=== PATIENT | male | born 1995 | race Caucasian/White ===

== ENCOUNTER 2023-04-03 10:24 | Emergency (ER) | payer MEDICARE, MEDICAID ==
[~2023-04-03] VITALS: Ht 185.4 cm; Wt 82.8 kg
[~2023-04-03 10:24] MED LIST: DIVA-81 PO; PENI500T2 PO; VALP250C44 PO
[2023-04-03 10:25] VITALS: BP 128/78; PULSE 77; RESP 16; TEMP 98; O2SAT 100
== END 2023-04-03 11:26 | disposition home or self-care (01) ==
LOC: ER 10:25
DX: S06.0X0A Concussion without loss of consciousness, initial encounter (principal); W19.XXXA Unspecified fall, initial encounter; Y93.89 Activity, other specified; Y92.89 Other specified places as the place of occurrence of the external cause; Y99.8 Other external cause status
CPT/HCPCS: 99284

== ENCOUNTER 2024-10-05 15:29 | Emergency (ER) | payer MEDICARE, MEDICAID ==
[~2024-10-05] VITALS: Ht 182.9 cm; Wt 93.0 kg
[2024-10-05 15:38] VITALS: TEMP 98
--- NOTE | 2024-10-05 15:46 | ELECTROCARDIOGRAPH REPORT ---
[facility] Test Date: 2024-10-05 Test Time: 15:39:33 Pat Name: KWASI LONG Department: EMERGENCY ROOM Room: Gender: M Channel Man: DT : 1995 Requested By: ENDER PERALTA Order Number: [id number] Reading MD: Measurements Intervals [place] Rate: 68 P: 41 MD: 135 QRS: 34 QRSD: 92 T: 35 QT: 364 QTc: 388 Interpretive Statements Sinus rhythm ST elev, probable normal early repol pattern Please click the below link to view image of tracing.
--- NOTE | 2024-10-05 16:07 | RADIOLOGY REPORT ---
EXAM: XR Chest, 1 View CLINICAL INDICATION: CP TECHNIQUE: Frontal view of the chest. COMPARISON: None FINDINGS: LUNGS AND PLEURAL SPACES: Unremarkable. No consolidation. No pneumothorax. HEART: Unremarkable. No cardiomegaly. MEDIASTINUM: Unremarkable. Normal mediastinal contour. BONES/JOINTS: Unremarkable. No acute fracture. OTHER FINDINGS: . IMPRESSION: No acute cardiopulmonary process.
[2024-10-05 16:38] LABS: BASOPHILS % (AUTO) 0.5 % (0-1); EOSINOPHILS % (AUTO) 0.7 % (0-6); HEMATOCRIT 37.7 % (42.0-52.0); HEMOGLOBIN 13.1 g/dl (14.0-17.9); LYMPHOCYTES # (AUTO) 2.3 X10'3 (1.1-4.8); LYMPHOCYTES % (AUTO) 44.9 % (21-51); MEAN CORPUSCULAR HEMOGLOBIN 34.7 PG (27.0-31.0); MEAN CORPUSCULAR HGB CONC 34.9 g/dL (33.0-36.5); MEAN CORPUSCULAR VOLUME 99.3 FL (78-98); MEAN PLATELET VOLUME 7.5 FL (7.4-10.4); MONOCYTES # (AUTO) 0.8 X10'3 (0-0.9); NEUTROPHILS # (AUTO) 1.9 X10'3 (1.8-7.7); NEUTROPHILS % (AUTO) 37.9 % (42-75); PLATELET COUNT 178 X10'3 (140-440); RED BLOOD COUNT 3.79 X10'6 (4.70-6.10); RED CELL DISTRIBUTION WIDTH 12.6 % (11.5-14.5); WHITE BLOOD COUNT 5.1 X10'3 (4.5-11.0)
[2024-10-05 16:53] LABS: ALANINE AMINOTRANSFERASE 18 U/L (12-78); ALBUMIN 3.1 G/DL (3.4-5.0); ALKALINE PHOSPHATASE 75 IU/L (46-116); ANION GAP 4 (8-16); ASPARTATE AMINO TRANSFERASE 21 U/L (10-37); BILIRUBIN,TOTAL 0.3 MG/DL (0.1-1.0); BLOOD UREA NITROGEN 9 MG/DL (7-18); BUN/CREATININE RATIO 11.7 (10.0-20.0); CALCIUM 8.6 MG/DL (8.5-10.1); CHLORIDE 108 MMOL/L (99-107); CREATININE 0.77 MG/DL (0.60-1.10); GLUCOSE 99 MG/DL (70-104); SODIUM 140 MMOL/L (135-145); TOTAL CARBON DIOXIDE 28.4 MMOL/L (24-32); TOTAL PROTEIN 6.1 G/DL (6.4-8.2); eCRCL 154 ML/MIN; eGFR > 90 ML/MIN
[2024-10-05 17:00] LABS: PRO BRAIN NATRIURETIC PEPTIDE 98 PG/ML (0-125)
--- NOTE | 2024-10-05 17:08 | Physician Documentation ---
History of Present Illness ~ Chief Complaint: Chest Pain Stated Complaint: CP Time Seen by MD: 15:54 Primary Medical Doctor: DR TANISHA BRIONES Source: patient, family HPI Patient is seen today with his caregiver and mother with history of developmental delay with complain of chest pain earlier today. Patient states he had acute onset of some chest pain but denies any shortness of breath or abdominal pain or nausea, vomiting, diarrhea. Patient's caregiver states the patient has been drinking a lot of ice tea but has not been drinking much water and she is concerned that he might be dehydrated. Patient does have history of seizures and takes his seizure medication daily. Patient has no other concern or complaint at this time. Medication Reconciliation Allergies: Coded Allergies: Sulfa (Sulfonamide Antibiotics) (Verified Allergy, Unknown, 06/12/16) carbamazepine (Verified Allergy, Unknown, 06/12/16) levetiracetam (Verified Allergy, Unknown, 06/12/16) red dye (Verified Allergy, Unknown, 06/12/16) Scheduled Divalproex Sodium ER* (Depakote ER*), 1,000 MG PO DAILY, (Reported) Penicillin V Potassium* (Penicillin VK*), 500 MG PO Q6H Valproic Acid (Valproic Acid), 500 MG PO lunch, (Reported) Past Medical History Past Medical History: Seizures, Anxiety Past Surgical History: noncontributory Alcohol Use: None Drug Use: none Lives with: Family Lives In: Home Occupation: child Review of Systems Constitutional: Denies: chills, fever, weakness Eyes: Denies: pain, blurred vision ENT: Denies: ear pain, nose pain, throat pain, mouth pain Respiratory: Denies: cough, shortness of breath Cardiovascular: Denies: chest pain, palpitations Gastrointestinal: Denies: abdominal pain, nausea, vomiting Genitourinary: Denies: burning, dysuria Male Genitalia: Denies: penile discharge, testicular pain Neurological: Denies: headache, dizziness Musculoskeletal: Denies: pain, swelling Integumentary: Denies: rash, lesions Allergic/Immunologic: Denies: hives, itching Hematologic/Lymphatic: Denies: no symptoms reported Psychiatric: Denies: depression, anxiety Physical Exam Vital Signs: Temperature: 98.0, Source: Oral, Heart Rate: 74, Respiratory Rate: 12, BP: 131/73, Pulse Oximetry: 97, Weight: 93.000 Physical Exam General: Awake and Alert, no acute distress. HEENT: Conjunctiva pink, Sclera clear, Mucus Membranes moist. Neck: Supple without masses and tenderness. Resp: Unlabored. Lungs clear to auscultation bilaterally. Heart: Regular Rate and rhythm, normal S1 and S2 without murmur, rub or gallop. Abdomen: Soft and non tender no organomegaly Extremities: No cyanosis,clubbing or edema. Skin: Warm and Dry. Progress Results/Orders Results/Orders Vital Signs 10/05/24 10/05/24 15:38 15:49 Temp 98.0 Pulse 74 Resp 12 12 B/P (MAP) 131/73 Pulse Ox 97 Laboratory Tests Test 10/05/24 16:30 White Blood Count 5.1 Red Blood Count 3.79 L Hemoglobin 13.1 L Hematocrit 37.7 L Mean Corpuscular Volume 99.3 H Mean Corpuscular Hemoglobin 34.7 H Mean Corpuscular Hemoglobin Concent 34.9 Red Cell Distribution Width 12.6 Platelet Count 178 Mean Platelet Volume 7.5 Neutrophils (%) (Auto) 37.9 L Lymphocytes (%) (Auto) 44.9 Monocytes (%) (Auto) 16.0 H Eosinophils (%) (Auto) 0.7 Basophils (%) (Auto) 0.5 Neutrophils # (Auto) 1.9 Lymphocytes # (Auto) 2.3 Monocytes # (Auto) 0.8 Eosinophils # (Auto) 0.0 Basophils # (Auto) 0.0 CBC Comment Basophilic Stippling Sodium Level 140 Potassium Level 4.0 Chloride Level 108 H Carbon Dioxide Level 28.4 Anion Gap 4 L Blood Urea Nitrogen 9 Creatinine 0.77 Estimated GFR/1.73 m2 > 90 BUN/Creatinine Ratio 11.7 Glucose Level 99 Calcium Level 8.6 Total Bilirubin 0.3 Aspartate Amino Transf (AST/SGOT) 21 Alanine Aminotransferase (ALT/SGPT) 18 Alkaline Phosphatase 75 Troponin I High Sensitivity 5 Pro-B-Type Natriuretic Peptide 98 Total Protein 6.1 L Albumin 3.1 L Globulin 3.0 Albumin/Globulin Ratio 1.0 L Chemistry Comments EKG/XRAY/CT/US/VASC/MRI EKG : Additional Comment EKG interpreted by myself today shows normal rate at 68 beats per minute, normal sinus rhythm, no sign of ST segment elevation or ischemia, no axis deviation. Chest X-Ray : Additional Comments Chest x-ray interpreted by myself today shows no large effusion, no large infiltrate, normal mediastinum. DIAGNOSTIC RADIOLOGY Patient: KWASI LONG Medical Record: [id number] [facility] 1995, Age: 29 Sex: Male Location: ER Patient Status: REG ER Service Date/Time: 10/05/241542 Ordering Physician: ENDER PERALTA MD Exam: CHEST,SINGLE VIEW EXAM: XR Chest, 1 View CLINICAL INDICATION: CP TECHNIQUE: Frontal view of the chest. COMPARISON: None FINDINGS: LUNGS AND PLEURAL SPACES: Unremarkable. No consolidation. No pneumothorax. HEART: Unremarkable. No cardiomegaly. MEDIASTINUM: Unremarkable. Normal mediastinal contour. BONES/JOINTS: Unremarkable. No acute fracture. OTHER FINDINGS: . IMPRESSION: No acute cardiopulmonary process. Electronically Signed by:ISABEL CORONA MD Date & Time: 10/05/241604 Dictated by: ISABEL CORONA MD Dictation date and time: 10/05/241604 Primary Care Provider: NO PRIMARY CARE PROVIDER cc: ENDER PERALTA MD ~ Heart Score: Heart Score Response (Comments) Value History Slightly Suspicious 0 EKG Normal 0 Age <45 0 Risk Factors 1 or 2 risk factors 1 Troponin Normal limit 0 Total 1 Medical Decision Making Findings Patient is seen today with his caregiver and mother with history of developmental delay with complain of chest pain earlier today. Patient states he had acute onset of some chest pain but denies any shortness of breath or abdominal pain or nausea, vomiting, diarrhea. Patient's caregiver states the patient has been drinking a lot of ice tea but has not been drinking much water and she is concerned that he might be dehydrated. Patient does have history of seizures and takes his seizure medication daily. Patient has no other concern or complaint at this time. Patient's labs are largely unremarkable, patient has mild anemia however troponin levels were very low and unremarkable. Patient's EKG and chest x-ray were also unremarkable. Patient is eating and drinking comfortably in the exam room in the hospital today. Patient will continue healthy diet and activity level as tolerated and will drink plenty of water every day and will follow up with primary care in and continue his medications as currently prescribed. Return to ED with any worsening, concerning or changing symptoms. Differential Dx:Considerations: Include: angina, aortic dissection, chest wall pain, cholelithiasis, gastritis, myocardial infarction, pericarditis, pancreatitis, pulmonary embolus Departure Disposition: HOME / SELF CARE / HOMELESS Impression: Primary Impression: Chest pain Qualified Codes: R07.9 - Chest pain, unspecified Condition: Improved Discharge Instructions: Nonspecific Chest Pain, Adult Additional Instructions: Patient's labs are largely unremarkable, patient has mild anemia however troponin levels were very low and unremarkable. Patient's EKG and chest x-ray were also unremarkable. Patient is eating and drinking comfortably in the exam room in the hospital today. Patient will continue healthy diet and activity level as tolerated and will drink plenty of water every day and will follow up with primary care in and continue his medications as currently prescribed. Return to ED with any worsening, concerning or changing symptoms. Referrals: NO PRIMARY CARE PROVIDER (PCP) Signature Scribe Signature: No scribe Attestation: No scribe ZAHCARY BROWER October 05, 2024 17:08
[2024-10-05 17:17] VITALS: BP 121/70; PULSE 62; RESP 12; O2SAT 99
[2024-10-05 17:37] LABS: PLATELET ESTIMATE NORMAL
[2024-10-05 19:29] LABS: TOTAL CELLS COUNTED 100
== END 2024-10-05 17:18 | disposition home or self-care (01) ==
LOC: ER 15:30
DX: R07.9 Chest pain, unspecified (principal); Z88.2 Allergy status to sulfonamides
CPT/HCPCS: 36415; 71045; 80053; 83880; 84484; 85007; 85025; 93005; 99285